=== PATIENT | male | born 1995 | race Caucasian/White ===

== ENCOUNTER 2022-08-11 23:27 | Emergency (ER) | payer SELFPAY ==
[2022-08-11] MEDS ORDERED: Ibuprofen 600 MG Tab PO ONE (23:45)
[2022-08-11] MEDS ORDERED: Acetaminophen/HYDROcodone 325-5 MG Tab PO ONE (23:45)
[2022-08-12 00:07] LABS: BLOOD UREA NITROGEN,BUN 21 mg/dL (7.0-18.0); CARBON DIOXIDE,CO2 28.3 mmol/L (21.0-32.0); CHLORIDE,CL 105 mmol/L (98-107); GLUCOSE RANDOM 177 mg/dL (74-106); POTASSIUM,K 3.3 mmol/L (3.5-5.1); SODIUM,NA 144 mmol/L (136-148)
[2022-08-12 00:20] LABS: ESTIMATED GFR 108 mL/min (>60)
[2022-08-12 00:23] LABS: CORONAVIRUS COVID-19 NAA NEGATIVE (NEGATIVE); INFLUENZA A NAA NEGATIVE (NEGATIVE); INFLUENZA B NAA NEGATIVE (NEGATIVE)
== END 2022-08-12 00:34 | disposition home or self-care (01) ==
LOC: MW.ED 23:27
DX: B34.9 Viral infection, unspecified (principal); Z20.822 Contact with and (suspected) exposure to COVID-19
CPT/HCPCS: 0240U; 36415; 71045; 80053; 84484; 85025; 86140; 93005; 99285

== ENCOUNTER 2023-01-13 19:47 | Emergency (ER) | payer OTHER ==
[2023-01-13] MEDS ORDERED: Sodium Chloride 0.9% 10 ML Syringe FLUSH PRN (19:53)
[2023-01-13] MEDS ORDERED: Ondansetron 4 MG/2 ML SDV IVPUSH ONE (19:53)
[2023-01-13] MEDS ORDERED: Sodium Chloride 0.9% 2.5 ML Syringe FLUSH PRN (19:53)
[2023-01-13] MEDS ORDERED: Sodium Chloride 0.9% 1,000 ML IV ONE (19:53)
[2023-01-13] MEDS ORDERED: Famotidine 20 MG/2 ML SDV IVPUSH ONE (19:53)
[2023-01-13] MEDS ORDERED: fentaNYL 50 MCG/ML SDV IVPUSH ONE (19:53)
[2023-01-13] MEDS ORDERED: fentaNYL 100 MCG/2 ML SDV ONE (19:54)
[2023-01-13] MEDS ORDERED: Ondansetron 4 MG/2 ML SDV ONE (19:54)
[2023-01-13] MEDS ORDERED: Diphtheria,Pertussis(Acell),Tetanus Vaccine 0.5 ML Syringe IM ONE (19:55)
[2023-01-13] MEDS ORDERED: ceFAZolin 2 GM in Sodium Chloride 0.9% 50 ML IV ONE (19:55)
[2023-01-13 20:23] LABS: BLOOD UREA NITROGEN,BUN 15 mg/dL (7.0-18.0); CHLORIDE,CL 103 mmol/L (98-107); GLUCOSE RANDOM 116 mg/dL (74-106); LIPASE 197 U/L (73-393); POTASSIUM,K 3.4 mmol/L (3.5-5.1); SODIUM,NA 142 mmol/L (136-148)
[2023-01-13 20:24] LABS: ESTIMATED GFR 72 mL/min (>60)
[2023-01-13] MEDS ORDERED: diphenhydrAMINE 50 MG/ML SDV IVPUSH ONE (20:40)
[2023-01-13] MEDS ORDERED: Prochlorperazine 10 MG/2 ML SDV IVPUSH ONE (20:40)
[2023-01-13] MEDS ORDERED: Prochlorperazine 10 MG/2 ML SDV ONE (20:41)
[2023-01-13] MEDS ORDERED: diphenhydrAMINE 50 MG/ML SDV ONE (20:41)
[2023-01-13] MEDS ORDERED: Iopamidol 755 MG/ML 500 ML Multipack Bottle IVPUSH STA (20:43)
[2023-01-13] MEDS ORDERED: Lidocaine 2% 100 MG/5 ML Syringe IVPUSH ONE (21:13)
[2023-01-13] MEDS ORDERED: Etomidate 2 MG/ML 20 ML SDV IVPUSH ONE (21:15)
[2023-01-13] MEDS ORDERED: Rocuronium 50 MG/5 ML Vial IV ONE (21:15)
[2023-01-13] MEDS ORDERED: fentaNYL/Normal Saline 250 ML ONE (21:20)
[2023-01-13] MEDS ORDERED: Midazolam 5 MG/ML SDV ONE (21:20)
== END 2023-01-13 21:34 ==
LOC: MW.ED 19:47
DX: S06.330A Contusion and laceration of cerebrum, unspecified, without loss of consciousness, initial encounter (principal); S27.329A Contusion of lung, unspecified, initial encounter; S06.360A Traumatic hemorrhage of cerebrum, unspecified, without loss of consciousness, initial encounter; J96.90 Respiratory failure, unspecified, unspecified whether with hypoxia or hypercapnia; Z90.49 Acquired absence of other specified parts of digestive tract; Z23 Encounter for immunization; V29.99XA Rider (driver) (passenger) of other motorcycle injured in unspecified traffic accident, initial encounter; Y92.410 Unspecified street and highway as the place of occurrence of the external cause
CPT/HCPCS: 31500; 36415; 70450; 70486; 71045; 71260; 72125; 74177; 80053; 80305; 80307; 81001; 83690; 83735; 84484; 85025; 85610; 85730; 93005; 96374; 96375; 99291; J0690; J1953; J2405; J3010; J3490; J7060; Q9967; 72128-26; 72131-26; 93010

== ENCOUNTER 2023-01-31 10:22 | Emergency (ER) | payer SELFPAY | END 2023-01-31 11:50 | disposition left against medical advice (07) | LOC: MW.ED 10:22 | DX: Z53.21 Procedure and treatment not carried out due to patient leaving prior to being seen by health care provider (principal) ==